=== PATIENT | male | born 1990 | race Caucasian/White ===

== ENCOUNTER 2018-05-08 16:22 | Emergency (ER) | payer OTHER ==
[~2018-05-08] VITALS: Ht 182.9 cm; Wt 76.7 kg
[2018-05-08 16:35] VITALS: Ht 182.9 cm; Wt 76.7 kg
[2018-05-08 18:21] LABS: microscopic required? NO
[2018-05-08 18:29] LABS: UA SPECIFIC GRAVITY >=1.030 (1.005-1.035); urine erythrocyte NEGATIVE (NEGATIVE)
[2018-05-08 18:32] LABS: BASOPHIL % 0.5 % (0-2); PLATELET COUNT 140 x10^3mcL (130-400); RED CELL DISTRIBUTION WIDTH 13.3 % (11.5-14.5)
[2018-05-08 20:11] VITALS: BP 125/78
== END 2018-05-08 20:11 | disposition home or self-care (01) ==
LOC: ED 16:22
PROVIDERS: Emergency Medicine Emergency Medical Services
DX: N43.3 Hydrocele, unspecified (principal); N50.3 Cyst of epididymis
CPT/HCPCS: Q0092